=== PATIENT | female | born 1995 | race Caucasian/White ===

== ENCOUNTER 2016-07-01 13:34 | Emergency (ER) | payer OTHER ==
[~2016-07-01] VITALS: Ht 154.9 cm; Wt 53.1 kg
[2016-07-01 13:54] VITALS: BP 122/75
== END 2016-07-01 15:28 | disposition home or self-care (01) ==
LOC: ED 13:34
DX: N76.0 Acute vaginitis (principal)

== ENCOUNTER 2016-11-16 15:32 | Emergency (ER) | payer OTHER ==
[~2016-11-16] VITALS: Ht 154.9 cm; Wt 53.1 kg
[2016-11-16 16:34] LABS: BASOPHIL % 0.2 % (0-2); PLATELET COUNT 274 x10^3mcL (130-400); RED CELL DISTRIBUTION WIDTH 13.1 % (11.5-14.5)
[2016-11-16 16:48] LABS: ALBUMIN 4.7 g/dL (3.4-5.0); ALKALINE PHOSPHATASE 64 U/L (46-116); ALT/SGPT 21 U/L (14-59); AMYLASE 75 U/L (25-115); AST/SGOT 17 U/L (15-37); BILIRUBIN TOTAL 2.2 mg/dL (0.20-1.00); CALCIUM 9.7 mg/dL (8.5-10.1); CARBON DIOXIDE 24.4 mmol/L (21-32); CHLORIDE SERUM 101 mmol/L (98-107); CREATININE SERUM 0.9 mg/dL (0.6-1.0); GFR1 > 60 mL/min; GLUCOSE SERUM 118 mg/dL (74-106); LIPASE 166 IU/L (73-393); SODIUM SERUM 139 mmol/L (136-145); TOTAL PROTEIN, SERUM 8.5 g/dL (6.4-8.2)
[2016-11-16 16:52] LABS: UA SPECIFIC GRAVITY 1.015 (1.005-1.035); microscopic required? YES; urine erythrocyte NEGATIVE (NEGATIVE)
[2016-11-16 17:58] VITALS: BP 118/63
== END 2016-11-16 17:58 | disposition home or self-care (01) ==
LOC: ED 15:32
PROVIDERS: Emergency Medicine
DX: R11.10 Vomiting, unspecified (principal); R10.13 Epigastric pain
CPT/HCPCS: J2270; J2405; J7030

== ENCOUNTER 2017-02-22 16:46 | Emergency (ER) | payer OTHER ==
[~2017-02-22] VITALS: Ht 154.9 cm; Wt 54.0 kg
[2017-02-22 16:56] VITALS: BP 122/81
== END 2017-02-22 18:17 | disposition home or self-care (01) ==
LOC: ED 16:46
DX: G43.909 Migraine, unspecified, not intractable, without status migrainosus (principal); R11.2 Nausea with vomiting, unspecified; F12.20 Cannabis dependence, uncomplicated; Z79.1 Long term (current) use of non-steroidal anti-inflammatories (NSAID)
CPT/HCPCS: Q0162

== ENCOUNTER 2018-04-28 23:45 | Emergency (ER) | payer OTHER | END 2018-04-29 00:55 | disposition left against medical advice (07) | LOC: ED 23:45 | DX: Z53.21 Procedure and treatment not carried out due to patient leaving prior to being seen by health care provider (principal) ==

== ENCOUNTER 2018-07-31 19:52 | Emergency (ER) | payer OTHER ==
[~2018-07-31] VITALS: Ht 157.5 cm; Wt 51.3 kg
[2018-07-31 20:05] VITALS: BP 112/78; Ht 157.5 cm; Wt 51.3 kg
== END 2018-07-31 22:54 | disposition home or self-care (01) ==
LOC: ED 19:52
DX: R10.2 Pelvic and perineal pain (principal); R10.30 Lower abdominal pain, unspecified